=== PATIENT | female | born 1945 | race Caucasian/White ===

== ENCOUNTER 2024-11-12 09:05 | Outpatient (CLI) | payer MEDICARE, OTHER, SELFPAY ==
--- NOTE | 2024-11-12 10:00 | P.ANES_ITS ---
Anesthesia Charges Start Date/Time Anesthesia Start Date: 11/12/24 Anesthesia Start Time: 10:50 Stop Date/Time Anesthesia Stop Date: 11/12/24 Anesthesia Stop Time: 11:32 Summary Extremes of Age - Over 70 or under 1: MDA Coding CPT Codes CPT Codes: ANES UPR LWR GI NDSC PX - 30372 ([id number]) P2 - PATIENT W/MILD SYST DISEASE, QK - ORBITREAD OPERATOR 2-4 CNCRNT ANES PROC, QX - LICENSED NURSING ASSISTANT SVC W/ MD MED DIRECTION Additional Codes: Summary - Extremes of Age - Over 70 or under 1: MDA ([id number])
--- NOTE | 2024-11-12 10:00 | W.ANESCHARGE ---
Anesthesia Charges Start Date/Time Anesthesia Start Date: 11/12/24 Anesthesia Start Time: 10:50 Stop Date/Time Anesthesia Stop Date: 11/12/24 Anesthesia Stop Time: 11:32 Summary Extremes of Age - Over 70 or under 1: MDA Coding CPT Codes CPT Codes: ANES UPR LWR GI NDSC PX - 96325 ([id number]) P2 - PATIENT W/MILD SYST DISEASE, QK - MANAGER ROOFING 2-4 CNCRNT ANES PROC, QX - LOGISTICAL ENGINEER SVC W/ MD MED DIRECTION Additional Codes: Summary - Extremes of Age - Over 70 or under 1: MDA ([id number])
--- NOTE | 2024-11-12 11:34 | P.ANES_ITS ---
Anesthesia Charges Start Date/Time Anesthesia Start Date: 11/12/24 Anesthesia Start Time: 10:50 Stop Date/Time Anesthesia Stop Date: 11/12/24 Anesthesia Stop Time: 11:32 Summary Extremes of Age - Over 70 or under 1: SAW CLEANER Coding CPT Codes CPT Codes: ANES UPR LWR GI NDSC PX - 68087 ([id number]) P2 - PATIENT W/MILD SYST DISEASE, QK - VIDEO AND SOUND RECORDER 2-4 CNCRNT ANES PROC, QX - SAW CLEANER SVC W/ MD MED DIRECTION Additional Codes: Summary - Extremes of Age - Over 70 or under 1: SAW CLEANER ([id number])
--- NOTE | 2024-11-12 11:34 | W.ANESCHARGE ---
Anesthesia Charges Start Date/Time Anesthesia Start Date: 11/12/24 Anesthesia Start Time: 10:50 Stop Date/Time Anesthesia Stop Date: 11/12/24 Anesthesia Stop Time: 11:32 Summary Extremes of Age - Over 70 or under 1: BARREL HEADER Coding CPT Codes CPT Codes: ANES UPR LWR GI NDSC PX - 85515 ([id number]) P2 - PATIENT W/MILD SYST DISEASE, QK - WEB MARKETING COORDINATOR 2-4 CNCRNT ANES PROC, QX - BARREL HEADER SVC W/ MD MED DIRECTION Additional Codes: Summary - Extremes of Age - Over 70 or under 1: BARREL HEADER ([id number])
== END 2024-11-12 09:06 | disposition home or self-care (01) ==
LOC: OP CLINIC 09:11
PROVIDERS: PCP Family Medicine; Visit Provider Internal Medicine Gastroenterology
DX: Z12.11 Encounter for screening for malignant neoplasm of colon (principal); Z86.0101 Personal history of adenomatous and serrated colon polyps; D12.2 Benign neoplasm of ascending colon; Q43.8 Other specified congenital malformations of intestine; D50.9 Iron deficiency anemia, unspecified; K21.00 Gastro-esophageal reflux disease with esophagitis, without bleeding; K44.9 Diaphragmatic hernia without obstruction or gangrene; K31.89 Other diseases of stomach and duodenum
CPT/HCPCS: 00813; 43239; 45380; 88305; 99100; J2704; J3490